=== PATIENT | female | born 1955 | race Caucasian/White ===

== ENCOUNTER 2018-10-12 08:41 | Day surgery (SDC) | payer MEDICARE, OTHER ==
[~2018-10-12 08:41] MED LIST: ACETAMINOPHEN 1,000 MG/100 ML BTL IV ONE
[2018-10-12] MEDS ORDERED: PROPOFOL 10 MG/ML VIAL IV ONE (08:42)
[2018-10-12] MEDS ORDERED: SEVOFLURANE 250 ML INH ONE (08:42)
[2018-10-12] MEDS ORDERED: ACETAMINOPHEN 500 MG TABLET PO ONE (08:42)
[2018-10-12] MEDS ORDERED: LIDOCAINE 2% MDV (20MG/ML) 20ML VIAL IV ONE (08:42)
[2018-10-12] MEDS ORDERED: KETOROLAC 30 MG/ML VIAL IVP ONE (08:42)
[2018-10-12] MEDS ORDERED: ONDANSETRON HCL IV 4 MG/2 ML VIAL IVP ONE (08:42)
[2018-10-12] MEDS ORDERED: FENTANYL PF 100MCG/2ML VIAL IV ONE (08:42)
--- NOTE | 2018-10-12 15:10 | Operative Note ---
DATE OF SURGERY: 10/12/2018 Surgeon: Balaji Huynh DO PREOPERATIVE DIAGNOSIS: Trigger thumb of the right thumb. POSTOPERATIVE DIAGNOSIS: Trigger thumb of the right thumb. OPERATION: Tenotomy A1 tony right thumb using 3.5 loop magnification. DESCRIPTION OF PROCEDURE: This 53-year-old female was taken to the operating room and placed in the supine position on the operating room table. General anesthesia was induced. The right upper extremity was elevated. It was prepped with Hibiclens and draped in the usual sterile fashion. It was exsanguinated and the tourniquet inflated to 250 mmHg. An incision was made at the flexor crease of the metacarpophalangeal joint of the right thumb. Dissection was carried down through the skin and subcutaneous tissue. The neurovascular bundle on the radial side was easily identified just beneath it. The A1 tony was identified. It was then split from its proximal to its distal margin under direct vision and a significant nodularity of the FPL was identified. This tendon then moved very freely in flexion and extension without catching or locking under the A1 tony. The wound was irrigated. Hemostasis obtained with the electrocautery. The wound closed with interrupted 6-0 nylon suture. Sterile dressings were applied and the patient taken to the recovery room in satisfactory condition. CC: CA Leyva
== END 2018-10-12 12:25 | disposition home or self-care (01) ==
LOC: SUR 08:41
PROVIDERS: ATTEND Orthopaedic Surgery
DX: M65.311 Trigger thumb, right thumb (principal); I10 Essential (primary) hypertension; E78.00 Pure hypercholesterolemia, unspecified; K21.9 Gastro-esophageal reflux disease without esophagitis
CPT/HCPCS: 26055; 01810; J1885; J2405; J3010

== ENCOUNTER 2019-12-13 10:02 | Day surgery (SDC) | payer MEDICARE, OTHER ==
[2019-12-13] MEDS ORDERED: PROPOFOL 10 MG/ML VIAL IV ONE (10:03)
[2019-12-13] MEDS ORDERED: LIDOCAINE 2% MDV (20MG/ML) 20ML VIAL IV ONE (10:03)
--- NOTE | 2019-12-14 06:50 | Operative Note ---
OPERATION: ESOPHAGOGASTRODUODENOSCOPY with biopsy. PREOPERATIVE DIAGNOSIS: History of chronic GERD. POSTOPERATIVE DIAGNOSES: 1. Mildly irregular Z line. 2. Multiple gastric polyps. PROCEDURE: After informed consent was obtained from the patient, she was placed in the left lateral decubitus position in the endoscopy suite, sedated and monitored by the department of anesthesia. A well-lubricated GJC112 gastroscope was placed in the posterior oropharynx under direct visualization and passed to the proximal esophagus. The endoscope was advanced through the proximal, mid, and distal esophagus. The GE junction was slightly irregular. No ulcers, erosions, strictures, or varices were seen. The gastric body and antrum were inspected revealing multiple gastric polyps of the body and fundus. The antrum, however, was unremarkable. The pylorus, duodenal bulb, and sweep were unremarkable as well. The endoscope was retracted in the gastric body. J-turn views of the proximal stomach again revealed multiple polyps, which were biopsied for sampling purposes. No excessive bleeding was noted. The endoscope was straightened and GE junction biopsies were obtained. The endoscope removed from the patient with no new findings noted. RECOMMENDATIONS: The patient should continue current medical program. Further surveillance recommendations will be made based on tissue histology. As always, thank you for allowing me to participate in the healthcare of your patients. LIZ
== END 2019-12-13 12:04 | disposition home or self-care (01) ==
LOC: HOP 10:02
PROVIDERS: ATTEND Internal Medicine Gastroenterology
DX: D13.1 Benign neoplasm of stomach (principal); K22.719 Barrett's esophagus with dysplasia, unspecified; I10 Essential (primary) hypertension; E78.00 Pure hypercholesterolemia, unspecified; F41.8 Other specified anxiety disorders